=== PATIENT | male | born 1970 | race Native Hawaiian/Other Pacific Islander ===

== ENCOUNTER 2017-05-10 13:28 | Emergency (ER) | payer OTHER ==
[2017-05-10] MEDS: PERCOCET 5MG/325MG TAB PO (14:20)
[2017-05-10] MEDS: IBUPROFEN 400 MG TAB PO (14:21)
== END 2017-05-10 16:45 | disposition home or self-care (01) ==
LOC: M ED 13:28
DX: S62.91XA Unspecified fracture of right hand, initial encounter for closed fracture (principal); S50.311A Abrasion of right elbow, initial encounter; S50.312A Abrasion of left elbow, initial encounter; S80.212A Abrasion, left knee, initial encounter; V28.9XXA Unspecified motorcycle rider injured in noncollision transport accident in traffic accident, initial encounter; Y92.9 Unspecified place or not applicable; Y93.9 Activity, unspecified; Z88.6 Allergy status to analgesic agent; Z88.5 Allergy status to narcotic agent
CPT/HCPCS: 73080